=== PATIENT | male | born 1940 | race Caucasian/White ===

== ENCOUNTER → 2020-05-29 | Outpatient (CLI) | payer OTHER ==
[~2020-05-29] MED LIST: ATORVASTATIN CA40 M1 PO; FLOMAX0.4 MG PO; HYDROCODONE BIT1 T11 PO; MEDROL DOSEPAK4 MG PO; ZOFRAN ODT4 MG SL
== END | disposition home or self-care (01) ==
LOC: RAD 15:36
PROVIDERS: ATTEND Chiropractor
DX: M54.2 Cervicalgia (principal)